=== PATIENT | female | born 1940 | race Caucasian/White ===

== ENCOUNTER 2021-07-31 12:22 | Inpatient (IN) | payer MEDICARE ==
[2021-07-31 13:15] LABS: #Lymphocytes 0.6 thou/uL (1.20-3.40); #Monocytes 0.6 thou/uL (0.11-0.59); #Neutrophils 5.4 thou/uL (1.40-6.50); %Basophils 0.3 % (0.0-1.0); %Eosinophils 0.7 % (0.0-10.0); %Lymphocytes 8.2 % (21.0-51.0); %Monocytes 9.5 % (0.0-10.0); %Neutrophils 81.3 % (42.0-75.0); Hemoglobin 14.1 g/dL (12.0-16.0); Mean Corpuscular HGB CONC 33.8 g/dL (32.0-36.0); Mean Corpuscular Hemoglobin 34.3 pg (27.0-31.0); Mean Platelet Volume 7.1 fL (7.4-10.4); Platelet Count 168 thou/uL (130-400); RBC Distribution Width 11.8 % (11.5-14.5); White Blood Cell (WBC) Count 6.7 thou/uL (4.8-10.8)
[2021-07-31 13:38] LABS: ALT (SGPT) 10 U/L (8-55); AST (SGOT) 28 U/L (5-34); Albumin 3.5 g/dL (3.4-4.8); Alkaline Phosphatase 82 U/L (40-110); Anion Gap 13 mmol/L (10-20); BUN (Urea Nitrogen) 14 mg/dL (9.8-20.1); Calc. Creatinine Clearance 0 mL/min (70-130); Calcium 8.9 mg/dL (7.8-10.44); Carbon Dioxide 19 mmol/L (23-31); Chloride 101 mmol/L (98-107); Globulin 2.5 g/dL (2.4-3.5); Glucose 98 mg/dL (83-110); Potassium 3.9 mmol/L (3.5-5.1); Sodium 129 mmol/L (136-145)
[2021-07-31 15:34] LABS: Bacteria/HPF 3+ HPF (None Seen); Bilirubin Negative (Negative); Blood, Urine 1+ (Negative); Clarity Clear (Clear); Glucose, Urine (Dipstick) Normal (Negative); Ketone, Urine Trace mg/dL (Negative); Leukocyte 500 Leu/uL (Negative); Nitrite Negative (Negative); Protein, Urine (Dipstick) 10 mg/dL (Neg-Trace); RBC/HPF 0-3 HPF (0-3); Specific Gravity, Urine 1.014 (1.002-1.036); Squamous Epithelial 0-3 HPF (0-3); Urobilinogen Normal mg/dL (Less than 2); WBC/HPF Greater than 50 HPF (0-3)
[2021-07-31 16:40] LABS: CKMB 6.9 ng/mL (0-6.6)
[2021-07-31 18:19] LABS: Troponin I 0.442 ng/mL (< 0.028)
[2021-07-31] MEDS ORDERED: HYDROcodone/Acetaminophen 5/325 mg Tablet PO PRN (18:33)
[2021-07-31] MEDS ORDERED: Senokot S 8.6-50 MG TAB PO PRN (18:33)
[2021-07-31] MEDS ORDERED: Ondansetron PF 4 MG/2 ML Vial IVP PRN (18:33)
[2021-07-31] MEDS ORDERED: Acetaminophen 325 MG TAB PO PRN (18:33)
[2021-07-31] MEDS ORDERED: Albuterol Sulfate 2.5 mg/3 ml Neb NEB PRN (18:41)
[2021-07-31] MEDS ORDERED: Aspirin 325 MG TAB ONE (18:46)
[2021-07-31] MEDS ORDERED: Enoxaparin Sodium 80 MG/0.8 ML SYRINGE SC SCH ×2 (19:30→21:00)
[2021-07-31] MEDS ORDERED: Enoxaparin Sodium 80 MG/0.8 ML SYRINGE ONE (19:58)
[2021-07-31] MEDS ORDERED: Nicotine 14 MG PATCH ONE (19:58)
[2021-07-31] MEDS ORDERED: cefTRIAXone\\ROCEPHIN 1 GM VIAL ONE (19:58)
[2021-07-31] MEDS: Sodium Chloride 0.9% 1,000 ML IV SCH (20:20)
[2021-07-31] MEDS: cefTRIAXone\\ROCEPHIN 1 GM in Sodium Chloride 0.9% 100 ML IVPB SCH (20:21)
[2021-07-31] MEDS: Atorvastatin Calcium 40 MG TAB PO SCH (20:21)
[2021-07-31] MEDS: Nicotine 14 MG PATCH TD SCH (20:21)
[2021-07-31 22:07] LABS: Troponin I 0.442 ng/mL (< 0.028)
[2021-08-01 00:21] VITALS: BMI 26.3
[2021-08-01 05:48] LABS: #Eosinphils 0.1 thou/uL (0.0-0.7); #Lymphocytes 0.8 thou/uL (1.20-3.40); #Monocytes 0.5 thou/uL (0.11-0.59); #Neutrophils 2.6 thou/uL (1.40-6.50); %Basophils 0.5 % (0.0-1.0); %Eosinophils 2.9 % (0.0-10.0); %Lymphocytes 18.7 % (21.0-51.0); %Monocytes 12.4 % (0.0-10.0); %Neutrophils 65.5 % (42.0-75.0); Hemoglobin 12.9 g/dL (12.0-16.0); Mean Corpuscular HGB CONC 33.3 g/dL (32.0-36.0); Mean Corpuscular Hemoglobin 33.8 pg (27.0-31.0); Mean Platelet Volume 7.5 fL (7.4-10.4); Platelet Count 150 thou/uL (130-400); RBC Distribution Width 11.9 % (11.5-14.5)
[2021-08-01 06:25] LABS: ALT (SGPT) 10 U/L (8-55); AST (SGOT) 26 U/L (5-34); Alkaline Phosphatase 64 U/L (40-110); Anion Gap 12 mmol/L (10-20); BUN (Urea Nitrogen) 12 mg/dL (9.8-20.1); Bilirubin, Total 0.8 mg/dL (0.2-1.2); CK (CPK) 383 U/L (29-168); Calc. Creatinine Clearance 67 mL/min (70-130); Calcium 8.2 mg/dL (7.8-10.44); Carbon Dioxide 21 mmol/L (23-31); Cardiac Risk 2.7 (Less than 4.5); Chloride 103 mmol/L (98-107); Cholesterol 125 mg/dl (< 200 Desired); Glucose 81 mg/dL (83-110); HDL Cholesterol 47 mg/dL (>60 Neg Risk); LDL Cholesterol, Calculated 67 mg/dL; Potassium 3.6 mmol/L (3.5-5.1); Sodium 132 mmol/L (136-145); Triglycerides 55 mg/dL (Less than 150)
[2021-08-01] MEDS ORDERED: Carvedilol 6.25 MG TAB PO SCH (08:00)
[2021-08-01] MEDS: Sodium Chloride 0.9% 1,000 ML IV SCH (09:48)
[2021-08-01] MEDS: Enoxaparin Sodium 40 MG/0.4 ML SYRINGE SC SCH (09:50)
[2021-08-01] MEDS: Aspirin Chewable 81 MG TAB PO SCH (09:50)
[2021-08-01] MEDS: Carvedilol 6.25 MG TAB PO SCH ×2 (09:51→16:34)
[2021-08-01 13:58] LABS: SARS-CoV-2 PCR by NAA Not Detected (NotDetected)
[2021-08-01] MEDS: Nicotine 14 MG PATCH TD SCH (20:20)
[2021-08-01] MEDS: cefTRIAXone\\ROCEPHIN 1 GM in Sodium Chloride 0.9% 100 ML IVPB SCH (20:20)
[2021-08-01] MEDS: Atorvastatin Calcium 40 MG TAB PO SCH (20:20)
[2021-08-02] MEDS: hydrALAZINE 20 MG/ML VIAL SLOW IVP PRN ×2 (05:02→17:00)
[2021-08-02 05:05] LABS: #Eosinphils 0.1 thou/uL (0.0-0.7); #Lymphocytes 0.6 thou/uL (1.20-3.40); #Monocytes 0.4 thou/uL (0.11-0.59); #Neutrophils 2.7 thou/uL (1.40-6.50); %Basophils 0.1 % (0.0-1.0); %Eosinophils 2.2 % (0.0-10.0); %Lymphocytes 15.4 % (21.0-51.0); %Monocytes 10.2 % (0.0-10.0); %Neutrophils 72.1 % (42.0-75.0); Hemoglobin 12.5 g/dL (12.0-16.0); Mean Corpuscular HGB CONC 33.4 g/dL (32.0-36.0); Mean Corpuscular Hemoglobin 33.7 pg (27.0-31.0); Mean Platelet Volume 7.4 fL (7.4-10.4); Platelet Count 150 thou/uL (130-400); RBC Distribution Width 11.8 % (11.5-14.5); Red Blood Cell (RBC) Count 3.72 mill/uL (4.20-5.40); White Blood Cell (WBC) Count 3.8 thou/uL (4.8-10.8)
[2021-08-02 05:25] LABS: Anion Gap 10 mmol/L (10-20); BUN (Urea Nitrogen) 10 mg/dL (9.8-20.1); Calc. Creatinine Clearance 69 mL/min (70-130); Calcium 8.3 mg/dL (7.8-10.44); Carbon Dioxide 19 mmol/L (23-31); Chloride 104 mmol/L (98-107); Glucose 88 mg/dL (83-110); Potassium 3.5 mmol/L (3.5-5.1); Sodium 129 mmol/L (136-145)
[2021-08-02] MEDS: Aspirin Chewable 81 MG TAB PO SCH (09:34)
[2021-08-02] MEDS: Carvedilol 6.25 MG TAB PO SCH ×2 (09:34→17:44)
[2021-08-02] MEDS: Enoxaparin Sodium 40 MG/0.4 ML SYRINGE SC SCH (09:34)
[2021-08-02] MEDS ORDERED: Sodium Bicarbonate 50 MEQ in Sodium Chloride 0.45% 1,000 ML IV SCH (10:00)
[2021-08-02] MEDS ORDERED: Amlodipine 10 MG TAB PO SCH (18:00)
[2021-08-02] MEDS: cefTRIAXone\\ROCEPHIN 1 GM in Sodium Chloride 0.9% 100 ML IVPB SCH (20:02)
[2021-08-02] MEDS: Atorvastatin Calcium 40 MG TAB PO SCH (20:03)
[2021-08-02] MEDS: Nicotine 14 MG PATCH TD SCH (20:03)
[2021-08-03] MEDS: hydrALAZINE 20 MG/ML VIAL SLOW IVP PRN (01:09)
[2021-08-03 05:09] LABS: #Eosinphils 0.1 thou/uL (0.0-0.7); #Lymphocytes 0.5 thou/uL (1.20-3.40); #Monocytes 0.6 thou/uL (0.11-0.59); #Neutrophils 3.6 thou/uL (1.40-6.50); %Basophils 0.4 % (0.0-1.0); %Eosinophils 1.6 % (0.0-10.0); %Lymphocytes 9.5 % (21.0-51.0); %Monocytes 12.2 % (0.0-10.0); %Neutrophils 76.3 % (42.0-75.0); Hemoglobin 14.3 g/dL (12.0-16.0); Mean Corpuscular HGB CONC 34.8 g/dL (32.0-36.0); Mean Corpuscular Hemoglobin 35.1 pg (27.0-31.0); Mean Platelet Volume 7.3 fL (7.4-10.4); Platelet Count 163 thou/uL (130-400); RBC Distribution Width 11.8 % (11.5-14.5); Red Blood Cell (RBC) Count 4.07 mill/uL (4.20-5.40); White Blood Cell (WBC) Count 4.7 thou/uL (4.8-10.8)
[2021-08-03 05:31] LABS: Anion Gap 10 mmol/L (10-20); BUN (Urea Nitrogen) 7 mg/dL (9.8-20.1); Calc. Creatinine Clearance 77 mL/min (70-130); Calcium 8.4 mg/dL (7.8-10.44); Carbon Dioxide 21 mmol/L (23-31); Chloride 101 mmol/L (98-107); Glucose 91 mg/dL (83-110); Potassium 3.2 mmol/L (3.5-5.1); Sodium 129 mmol/L (136-145)
[2021-08-03] MEDS: Potassium Chloride 20 MEQ TAB PO SCH ×2 (08:50→11:14)
[2021-08-03] MEDS: Enoxaparin Sodium 40 MG/0.4 ML SYRINGE SC SCH (08:50)
[2021-08-03] MEDS: Aspirin Chewable 81 MG TAB PO SCH (08:51)
[2021-08-03] MEDS ORDERED: Amlodipine 10 MG TAB PO SCH (09:00)
[2021-08-03 16:09] VITALS: BP 134/88; TEMP 98.3
== END 2021-08-03 16:39 | disposition left against medical advice (07) | DRG 562 ==
LOC: ERS 12:22 → SUATTDRO 12:22 → ERHOLD 16:38 → 2NO 17:09 → OBSVTOIN 08-02 13:27 → ONC 08-03 12:53
PROVIDERS: ADMIT Internal Medicine; ATTEND Internal Medicine
DX: S52.501A Unspecified fracture of the lower end of right radius, initial encounter for closed fracture (principal); L89.323 Pressure ulcer of left buttock, stage 3; S32.511A Fracture of superior rim of right pubis, initial encounter for closed fracture; N39.0 Urinary tract infection, site not specified; M62.82 Rhabdomyolysis; E87.1 Hypo-osmolality and hyponatremia; I24.8 Other forms of acute ischemic heart disease; Z20.822 Contact with and (suspected) exposure to COVID-19; R29.6 Repeated falls; W19.XXXA Unspecified fall, initial encounter; I10 Essential (primary) hypertension; F17.210 Nicotine dependence, cigarettes, uncomplicated; I25.10 Atherosclerotic heart disease of native coronary artery without angina pectoris; Z53.29 Procedure and treatment not carried out because of patient's decision for other reasons; L89.312 Pressure ulcer of right buttock, stage 2
CPT/HCPCS: 36415; 70450; 71045; 72125; 72170; 80048; 80053; 80061; 81003; 81015; 82550; 82553; 83036; 84484; 85025; 87086; 93005; 93010; 94760; 96372; 96374; 96376; G0378; G0390; J0360; J0696; J1650; J3490; J7050; U0003; U0005

== ENCOUNTER 2021-08-22 10:56 | Inpatient (IN) | payer MEDICARE ==
[2021-08-22 11:44] LABS: #Eosinphils 0.1 thou/uL (0.0-0.7); #Lymphocytes 0.6 thou/uL (1.20-3.40); #Monocytes 0.5 thou/uL (0.11-0.59); #Neutrophils 4.6 thou/uL (1.40-6.50); %Basophils 0.1 % (0.0-1.0); %Eosinophils 1.5 % (0.0-10.0); %Lymphocytes 10.5 % (21.0-51.0); %Monocytes 9.1 % (0.0-10.0); %Neutrophils 78.8 % (42.0-75.0); Hemoglobin 13.8 g/dL (12.0-16.0); Mean Corpuscular HGB CONC 33.9 g/dL (32.0-36.0); Mean Corpuscular Hemoglobin 33.4 pg (27.0-31.0); Mean Corpuscular Volume 98.7 fL (78.0-98.0); Platelet Count 207 thou/uL (130-400); RBC Distribution Width 11.4 % (11.5-14.5); Red Blood Cell (RBC) Count 4.13 mill/uL (4.20-5.40); White Blood Cell (WBC) Count 5.8 thou/uL (4.8-10.8)
[2021-08-22 12:07] LABS: ALT (SGPT) 20 U/L (8-55); AST (SGOT) 31 U/L (5-34); Albumin 3.3 g/dL (3.4-4.8); Alkaline Phosphatase 75 U/L (40-110); Anion Gap 14 mmol/L (10-20); BUN (Urea Nitrogen) 25 mg/dL (9.8-20.1); Bilirubin, Total 0.8 mg/dL (0.2-1.2); CK (CPK) 36 U/L (29-168); Calc. Creatinine Clearance 0 mL/min (70-130); Calcium 8.7 mg/dL (7.8-10.44); Carbon Dioxide 21 mmol/L (23-31); Chloride 105 mmol/L (98-107); Globulin 2.5 g/dL (2.4-3.5); Glucose 87 mg/dL (83-110); Lipase 41 U/L (8-78); Potassium 3.2 mmol/L (3.5-5.1); Protein, Total 5.8 g/dL (5.8-8.1); Sodium 137 mmol/L (136-145)
[2021-08-22 12:26] LABS: CKMB 0.9 ng/mL (0-6.6)
[2021-08-22] MEDS ORDERED: Acetaminophen 325 MG TAB PO PRN (14:00)
[2021-08-22] MEDS ORDERED: Guaifenesin DM 100-10/5 ML UDCUP PO PRN (14:00)
[2021-08-22] MEDS ORDERED: Bisacodyl 5 MG TAB PO PRN (14:00)
[2021-08-22] MEDS ORDERED: Ondansetron PF 4 MG/2 ML Vial IVP PRN (14:00)
[2021-08-22] MEDS ORDERED: Aspirin Chewable 81 MG TAB PO SCH (14:30)
[2021-08-22 15:30] LABS: Troponin I 0.104 ng/mL (< 0.028)
[2021-08-22 18:18] LABS: Troponin I 0.093 ng/mL (< 0.028)
[2021-08-22] MEDS: Carvedilol 6.25 MG TAB PO SCH (18:52)
[2021-08-22] MEDS: Atorvastatin Calcium 40 MG TAB PO SCH (20:10)
[2021-08-22] MEDS: Famotidine 20 MG TAB PO SCH (20:10)
[2021-08-23 05:10] LABS: ALT (SGPT) 17 U/L (8-55); AST (SGOT) 28 U/L (5-34); Albumin 2.9 g/dL (3.4-4.8); Alkaline Phosphatase 67 U/L (40-110); Anion Gap 13 mmol/L (10-20); BUN (Urea Nitrogen) 22 mg/dL (9.8-20.1); Bilirubin, Total 0.8 mg/dL (0.2-1.2); Calc. Creatinine Clearance 0 mL/min (70-130); Calcium 8.4 mg/dL (7.8-10.44); Carbon Dioxide 19 mmol/L (23-31); Chloride 107 mmol/L (98-107); Globulin 2.2 g/dL (2.4-3.5); Glucose 88 mg/dL (83-110); Protein, Total 5.1 g/dL (5.8-8.1); Sodium 136 mmol/L (136-145)
[2021-08-23 05:15] LABS: Potassium 2.9 mmol/L (3.5-5.1)
[2021-08-23 05:28] LABS: #Eosinphils 0.2 thou/uL (0.0-0.7); #Lymphocytes 0.6 thou/uL (1.20-3.40); #Monocytes 0.5 thou/uL (0.11-0.59); #Neutrophils 3.7 thou/uL (1.40-6.50); %Basophils 0.4 % (0.0-1.0); %Eosinophils 3.5 % (0.0-10.0); %Monocytes 10.6 % (0.0-10.0); %Neutrophils 73.5 % (42.0-75.0); Hemoglobin 12.8 g/dL (12.0-16.0); Mean Corpuscular HGB CONC 33.2 g/dL (32.0-36.0); Mean Corpuscular Hemoglobin 32.7 pg (27.0-31.0); Mean Corpuscular Volume 98.6 fL (78.0-98.0); Mean Platelet Volume 7.3 fL (7.4-10.4); Platelet Count 192 thou/uL (130-400); RBC Distribution Width 11.4 % (11.5-14.5); White Blood Cell (WBC) Count 5.1 thou/uL (4.8-10.8)
[2021-08-23 05:29] VITALS: BMI 24.9
[2021-08-23] MEDS ORDERED: Electrolyte Replacement Protocol 1 EACH FS PRN (05:45)
[2021-08-23 05:56] LABS: Bacteria/HPF 3+ HPF (None Seen); Bilirubin Negative (Negative); Blood, Urine 1+ (Negative); Clarity Turbid (Clear); Glucose, Urine (Dipstick) Normal (Negative); Ketone, Urine 10 mg/dL (Negative); Leukocyte 500 Leu/uL (Negative); Nitrite Negative (Negative); Protein, Urine (Dipstick) 50 mg/dL (Neg-Trace); Specific Gravity, Urine 1.027 (1.002-1.036); Squamous Epithelial 0-3 HPF (0-3); Urobilinogen Normal mg/dL (Less than 2); WBC/HPF Greater than 50 HPF (0-3); Yeast-Budding 1+ HPF (None Seen); pH, Urine 6.5 (5.0-9.0)
[2021-08-23 06:02] LABS: Magnesium 1.9 mg/dL (1.6-2.6)
[2021-08-23] MEDS: Potassium Chloride 20 MEQ TAB PO SCH ×4 (06:10→13:21)
[2021-08-23 06:15] LABS: Renal Epithelial 0-3 HPF (None Seen)
[2021-08-23] MEDS ORDERED: Magnesium 2 GM/50 ML 2 GM in Premix Bag 1 BAG IVPB SCH (07:00)
[2021-08-23] MEDS: Enoxaparin Sodium 40 MG/0.4 ML SYRINGE SC SCH (08:46)
[2021-08-23] MEDS: Carvedilol 6.25 MG TAB PO SCH ×2 (08:47→18:08)
[2021-08-23] MEDS: Aspirin Chewable 81 MG TAB PO SCH (08:47)
[2021-08-23] MEDS: Famotidine 20 MG TAB PO SCH ×2 (08:48→20:10)
[2021-08-23] MEDS ORDERED: Amlodipine 5 MG TAB PO SCH (09:45)
[2021-08-23 12:05] LABS: SARS-CoV-2 PCR by NAA Not Detected (NotDetected)
[2021-08-23] MEDS ORDERED: hydrALAZINE 25 MG TAB PO PRN (16:15)
[2021-08-23] MEDS ORDERED: Carvedilol 6.25 MG TAB PO SCH (17:00)
[2021-08-23] MEDS ORDERED: FLU VACC QS2021-22(65YR UP)/PF 240 MCG/0.7 ML SYRINGE IM ONE (18:15)
[2021-08-23] MEDS: cefTRIAXone\\ROCEPHIN 1 GM in Sodium Chloride 0.9% 100 ML IVPB SCH (19:51)
[2021-08-23] MEDS: Atorvastatin Calcium 40 MG TAB PO SCH (20:10)
[2021-08-23] MEDS ORDERED: ALPRAZolam 0.5 MG TAB PO SCH (20:15)
[2021-08-24] MEDS: Melatonin 3 MG TAB PO PRN (00:01)
[2021-08-24 05:22] LABS: Anion Gap 13 mmol/L (10-20); BUN (Urea Nitrogen) 22 mg/dL (9.8-20.1); Calc. Creatinine Clearance 61 mL/min (70-130); Calcium 8.9 mg/dL (7.8-10.44); Carbon Dioxide 19 mmol/L (23-31); Chloride 109 mmol/L (98-107); Glucose 90 mg/dL (83-110); Magnesium 1.9 mg/dL (1.6-2.6); Potassium 4.4 mmol/L (3.5-5.1); Sodium 137 mmol/L (136-145)
[2021-08-24 05:28] LABS: #Eosinphils 0.1 thou/uL (0.0-0.7); #Lymphocytes 0.5 thou/uL (1.20-3.40); #Monocytes 0.5 thou/uL (0.11-0.59); #Neutrophils 4.1 thou/uL (1.40-6.50); %Basophils 0.3 % (0.0-1.0); %Eosinophils 2.7 % (0.0-10.0); %Lymphocytes 9.9 % (21.0-51.0); %Monocytes 9.4 % (0.0-10.0); %Neutrophils 77.6 % (42.0-75.0); Hemoglobin 13.6 g/dL (12.0-16.0); Mean Corpuscular HGB CONC 34.3 g/dL (32.0-36.0); Mean Corpuscular Hemoglobin 34.5 pg (27.0-31.0); Mean Platelet Volume 7.3 fL (7.4-10.4); Platelet Count 192 thou/uL (130-400); RBC Distribution Width 11.5 % (11.5-14.5); Red Blood Cell (RBC) Count 3.95 mill/uL (4.20-5.40); White Blood Cell (WBC) Count 5.3 thou/uL (4.8-10.8)
[2021-08-24] MEDS ORDERED: Magnesium 2 GM/50 ML 2 GM in Premix Bag 1 BAG IVPB SCH (05:45)
[2021-08-24] MEDS: Aspirin Chewable 81 MG TAB PO SCH (10:11)
[2021-08-24] MEDS: Carvedilol 6.25 MG TAB PO SCH ×2 (10:11→18:07)
[2021-08-24] MEDS: Enoxaparin Sodium 40 MG/0.4 ML SYRINGE SC SCH (10:11)
[2021-08-24] MEDS: Amlodipine 5 MG TAB PO SCH (10:11)
[2021-08-24] MEDS: Famotidine 20 MG TAB PO SCH ×2 (10:12→20:13)
[2021-08-24] MEDS: cefTRIAXone\\ROCEPHIN 1 GM in Sodium Chloride 0.9% 100 ML IVPB SCH (18:07)
[2021-08-24] MEDS: Atorvastatin Calcium 40 MG TAB PO SCH (20:13)
[2021-08-25 05:10] LABS: Magnesium 2.2 mg/dL (1.6-2.6)
[2021-08-25] MEDS: Amlodipine 5 MG TAB PO SCH (09:31)
[2021-08-25] MEDS: Carvedilol 6.25 MG TAB PO SCH ×3 (09:31→17:07)
[2021-08-25] MEDS: Famotidine 20 MG TAB PO SCH ×2 (09:32→20:12)
[2021-08-25] MEDS: Enoxaparin Sodium 40 MG/0.4 ML SYRINGE SC SCH (09:32)
[2021-08-25] MEDS: Aspirin Chewable 81 MG TAB PO SCH (09:32)
[2021-08-25] MEDS: cefTRIAXone\\ROCEPHIN 1 GM in Sodium Chloride 0.9% 100 ML IVPB SCH (20:12)
[2021-08-25] MEDS: Atorvastatin Calcium 40 MG TAB PO SCH (20:12)
[2021-08-26 05:17] LABS: #Eosinphils 0.2 thou/uL (0.0-0.7); #Lymphocytes 0.5 thou/uL (1.20-3.40); #Monocytes 0.4 thou/uL (0.11-0.59); %Basophils 0.4 % (0.0-1.0); %Eosinophils 3.9 % (0.0-10.0); %Lymphocytes 10.3 % (21.0-51.0); %Monocytes 7.2 % (0.0-10.0); %Neutrophils 78.2 % (42.0-75.0); Hemoglobin 13.7 g/dL (12.0-16.0); Mean Corpuscular HGB CONC 34.6 g/dL (32.0-36.0); Mean Corpuscular Hemoglobin 34.2 pg (27.0-31.0); Mean Corpuscular Volume 98.9 fL (78.0-98.0); Mean Platelet Volume 7.3 fL (7.4-10.4); Platelet Count 192 thou/uL (130-400); RBC Distribution Width 11.6 % (11.5-14.5); White Blood Cell (WBC) Count 5.1 thou/uL (4.8-10.8)
[2021-08-26 05:51] LABS: Anion Gap 12 mmol/L (10-20); BUN (Urea Nitrogen) 23 mg/dL (9.8-20.1); Calc. Creatinine Clearance 65 mL/min (70-130); Calcium 8.4 mg/dL (7.8-10.44); Carbon Dioxide 20 mmol/L (23-31); Chloride 108 mmol/L (98-107); Glucose 84 mg/dL (83-110); Magnesium 2.1 mg/dL (1.6-2.6); Potassium 3.6 mmol/L (3.5-5.1); Sodium 136 mmol/L (136-145)
[2021-08-26 09:01] LABS: Troponin I 0.043 ng/mL (< 0.028)
[2021-08-26] MEDS ORDERED: Regadenoson 0.4 MG/5 ML SYRINGE ONE (12:53)
[2021-08-26] MEDS: Famotidine 20 MG TAB PO SCH ×2 (16:09→20:28)
[2021-08-26] MEDS: Carvedilol 6.25 MG TAB PO SCH ×2 (16:10→17:02)
[2021-08-26] MEDS: Amlodipine 5 MG TAB PO SCH (17:01)
[2021-08-26] MEDS: Aspirin Chewable 81 MG TAB PO SCH (17:02)
[2021-08-26] MEDS: Enoxaparin Sodium 40 MG/0.4 ML SYRINGE SC SCH (17:02)
[2021-08-26] MEDS: cefTRIAXone\\ROCEPHIN 1 GM in Sodium Chloride 0.9% 100 ML IVPB SCH (20:27)
[2021-08-26] MEDS: Atorvastatin Calcium 40 MG TAB PO SCH (20:28)
[2021-08-27] MEDS ORDERED: Potassium Chloride 20 MEQ TAB PO SCH (08:00)
[2021-08-27] MEDS: Carvedilol 6.25 MG TAB PO SCH ×2 (08:09→17:08)
[2021-08-27] MEDS: Famotidine 20 MG TAB PO SCH ×2 (10:29→21:51)
[2021-08-27] MEDS: Folic Acid 1 MG TAB PO SCH (10:29)
[2021-08-27] MEDS: Aspirin Chewable 81 MG TAB PO SCH (10:29)
[2021-08-27] MEDS: Amlodipine 5 MG TAB PO SCH (10:30)
[2021-08-27] MEDS: Cyanocobalamin (Vitamin B-12) 1,000 MCG TAB PO SCH (10:31)
[2021-08-27] MEDS: Enoxaparin Sodium 40 MG/0.4 ML SYRINGE SC SCH (10:40)
[2021-08-27] MEDS: Atorvastatin Calcium 40 MG TAB PO SCH (21:52)
[2021-08-27] MEDS: cefTRIAXone\\ROCEPHIN 1 GM in Sodium Chloride 0.9% 100 ML IVPB SCH (21:52)
[2021-08-28 05:31] LABS: #Eosinphils 0.1 thou/uL (0.0-0.7); #Lymphocytes 0.4 thou/uL (1.20-3.40); #Monocytes 0.3 thou/uL (0.11-0.59); #Neutrophils 3.1 thou/uL (1.40-6.50); %Basophils 0.3 % (0.0-1.0); %Eosinophils 3.4 % (0.0-10.0); %Monocytes 7.6 % (0.0-10.0); %Neutrophils 77.6 % (42.0-75.0); Hemoglobin 13.9 g/dL (12.0-16.0); Mean Corpuscular HGB CONC 34.6 g/dL (32.0-36.0); Mean Corpuscular Hemoglobin 34.2 pg (27.0-31.0); Mean Corpuscular Volume 98.8 fL (78.0-98.0); Mean Platelet Volume 7.8 fL (7.4-10.4); Platelet Count 188 thou/uL (130-400); RBC Distribution Width 11.5 % (11.5-14.5); Red Blood Cell (RBC) Count 4.07 mill/uL (4.20-5.40)
[2021-08-28 05:52] LABS: Anion Gap 12 mmol/L (10-20); BUN (Urea Nitrogen) 29 mg/dL (9.8-20.1); Calc. Creatinine Clearance 65 mL/min (70-130); Calcium 8.9 mg/dL (7.8-10.44); Carbon Dioxide 20 mmol/L (23-31); Chloride 108 mmol/L (98-107); Glucose 82 mg/dL (83-110); Magnesium 1.9 mg/dL (1.6-2.6); Potassium 3.7 mmol/L (3.5-5.1); Sodium 136 mmol/L (136-145)
[2021-08-28] MEDS ORDERED: Magnesium 2 GM/50 ML 2 GM in Premix Bag 1 BAG IVPB SCH (07:00)
[2021-08-28] MEDS: Cyanocobalamin (Vitamin B-12) 1,000 MCG TAB PO SCH (09:29)
[2021-08-28] MEDS: Famotidine 20 MG TAB PO SCH ×2 (09:29→20:05)
[2021-08-28] MEDS: Amlodipine 5 MG TAB PO SCH (09:29)
[2021-08-28] MEDS: Folic Acid 1 MG TAB PO SCH (09:29)
[2021-08-28] MEDS: Aspirin Chewable 81 MG TAB PO SCH (09:29)
[2021-08-28] MEDS: Carvedilol 6.25 MG TAB PO SCH ×2 (09:29→18:47)
[2021-08-28] MEDS: Enoxaparin Sodium 40 MG/0.4 ML SYRINGE SC SCH (09:30)
[2021-08-28] MEDS: Atorvastatin Calcium 40 MG TAB PO SCH (20:05)
[2021-08-28] MEDS: cefTRIAXone\\ROCEPHIN 1 GM in Sodium Chloride 0.9% 100 ML IVPB SCH (20:05)
[2021-08-29] MEDS: Folic Acid 1 MG TAB PO SCH (09:16)
[2021-08-29] MEDS: Cyanocobalamin (Vitamin B-12) 1,000 MCG TAB PO SCH (09:16)
[2021-08-29] MEDS: Aspirin Chewable 81 MG TAB PO SCH (09:16)
[2021-08-29] MEDS: Famotidine 20 MG TAB PO SCH ×2 (09:16→20:14)
[2021-08-29] MEDS: Enoxaparin Sodium 40 MG/0.4 ML SYRINGE SC SCH (09:17)
[2021-08-29] MEDS: Amlodipine 5 MG TAB PO SCH (09:28)
[2021-08-29] MEDS: Carvedilol 6.25 MG TAB PO SCH ×2 (09:29→18:41)
[2021-08-29] MEDS: Atorvastatin Calcium 40 MG TAB PO SCH (20:14)
[2021-08-29] MEDS: Melatonin 3 MG TAB PO PRN (20:18)
[2021-08-30] MEDS: Amlodipine 5 MG TAB PO SCH (08:37)
[2021-08-30] MEDS: Cyanocobalamin (Vitamin B-12) 1,000 MCG TAB PO SCH (08:37)
[2021-08-30] MEDS: Famotidine 20 MG TAB PO SCH ×2 (08:37→21:30)
[2021-08-30] MEDS: Carvedilol 6.25 MG TAB PO SCH ×2 (08:37→16:50)
[2021-08-30] MEDS: Enoxaparin Sodium 40 MG/0.4 ML SYRINGE SC SCH (08:38)
[2021-08-30] MEDS: Folic Acid 1 MG TAB PO SCH (08:38)
[2021-08-30] MEDS: Aspirin Chewable 81 MG TAB PO SCH (08:38)
[2021-08-30] MEDS: HYDROcodone/Acetaminophen 5/325 mg Tablet PO PRN (12:53)
[2021-08-30] MEDS: Atorvastatin Calcium 40 MG TAB PO SCH (21:30)
[2021-08-30] MEDS: Melatonin 3 MG TAB PO PRN (21:30)
[2021-08-30 22:40] LABS: SARS-CoV-2 PCR by NAA Not Detected (NotDetected)
[2021-08-31] MEDS: Cyanocobalamin (Vitamin B-12) 1,000 MCG TAB PO SCH (09:04)
[2021-08-31] MEDS: Famotidine 20 MG TAB PO SCH ×2 (09:04→20:53)
[2021-08-31] MEDS: Amlodipine 5 MG TAB PO SCH (09:04)
[2021-08-31] MEDS: Aspirin Chewable 81 MG TAB PO SCH (09:04)
[2021-08-31] MEDS: Enoxaparin Sodium 40 MG/0.4 ML SYRINGE SC SCH (09:04)
[2021-08-31] MEDS: Folic Acid 1 MG TAB PO SCH (09:04)
[2021-08-31] MEDS: Carvedilol 6.25 MG TAB PO SCH (09:07)
[2021-08-31] MEDS ORDERED: Carvedilol 6.25 MG TAB PO SCH (13:34)
[2021-08-31] MEDS: Carvedilol 3.125 MG TAB PO SCH (16:47)
[2021-08-31] MEDS: Atorvastatin Calcium 40 MG TAB PO SCH (20:53)
[2021-08-31] MEDS: Melatonin 3 MG TAB PO PRN (20:53)
[2021-09-01] MEDS: Folic Acid 1 MG TAB PO SCH (09:09)
[2021-09-01] MEDS: Aspirin Chewable 81 MG TAB PO SCH (09:09)
[2021-09-01] MEDS: HYDROcodone/Acetaminophen 5/325 mg Tablet PO PRN (09:09)
[2021-09-01] MEDS: Enoxaparin Sodium 40 MG/0.4 ML SYRINGE SC SCH (09:09)
[2021-09-01] MEDS: Cyanocobalamin (Vitamin B-12) 1,000 MCG TAB PO SCH (09:09)
[2021-09-01] MEDS: Famotidine 20 MG TAB PO SCH ×2 (09:09→21:43)
[2021-09-01] MEDS: Carvedilol 3.125 MG TAB PO SCH ×2 (09:10→17:08)
[2021-09-01] MEDS: Atorvastatin Calcium 40 MG TAB PO SCH (21:43)
[2021-09-02 07:54] LABS: ALT (SGPT) 14 U/L (8-55); AST (SGOT) 22 U/L (5-34); Albumin 2.8 g/dL (3.4-4.8); Alkaline Phosphatase 72 U/L (40-110); Anion Gap 11 mmol/L (10-20); BUN (Urea Nitrogen) 22 mg/dL (9.8-20.1); Bilirubin, Total 0.7 mg/dL (0.2-1.2); Calc. Creatinine Clearance 73 mL/min (70-130); Calcium 8.5 mg/dL (7.8-10.44); Carbon Dioxide 21 mmol/L (23-31); Chloride 106 mmol/L (98-107); Globulin 2.5 g/dL (2.4-3.5); Glucose 89 mg/dL (83-110); Potassium 3.3 mmol/L (3.5-5.1); Protein, Total 5.3 g/dL (5.8-8.1); Sodium 135 mmol/L (136-145)
[2021-09-02] MEDS: Carvedilol 3.125 MG TAB PO SCH ×2 (08:28→17:02)
[2021-09-02] MEDS: Cyanocobalamin (Vitamin B-12) 1,000 MCG TAB PO SCH (08:28)
[2021-09-02] MEDS: Folic Acid 1 MG TAB PO SCH (08:28)
[2021-09-02] MEDS: Famotidine 20 MG TAB PO SCH ×2 (08:28→20:54)
[2021-09-02] MEDS: Aspirin Chewable 81 MG TAB PO SCH (08:28)
[2021-09-02] MEDS: Enoxaparin Sodium 40 MG/0.4 ML SYRINGE SC SCH (08:29)
[2021-09-02] MEDS: Potassium Chloride 20 MEQ TAB PO SCH ×2 (11:55→17:02)
[2021-09-02] MEDS: Atorvastatin Calcium 40 MG TAB PO SCH (20:54)
[2021-09-03] MEDS: Famotidine 20 MG TAB PO SCH (09:01)
[2021-09-03] MEDS: Cyanocobalamin (Vitamin B-12) 1,000 MCG TAB PO SCH (09:01)
[2021-09-03] MEDS: Folic Acid 1 MG TAB PO SCH (09:01)
[2021-09-03] MEDS: Aspirin Chewable 81 MG TAB PO SCH (09:01)
[2021-09-03] MEDS: Carvedilol 3.125 MG TAB PO SCH (09:03)
[2021-09-03] MEDS: Enoxaparin Sodium 40 MG/0.4 ML SYRINGE SC SCH (09:03)
[2021-09-03 20:16] VITALS: BP 114/77; TEMP 97.5
== END 2021-09-03 13:12 | disposition swing bed (61) | DRG 592 ==
LOC: ERS 10:56 → 2NO 13:12 → T4-B 08-29 18:19
PROVIDERS: ADMIT Internal Medicine Geriatric Medicine; ATTEND Internal Medicine
DX: L89.152 Pressure ulcer of sacral region, stage 2 (principal); Z20.822 Contact with and (suspected) exposure to COVID-19; I21.A1 Myocardial infarction type 2; S52.501A Unspecified fracture of the lower end of right radius, initial encounter for closed fracture; S52.601A Unspecified fracture of lower end of right ulna, initial encounter for closed fracture; S32.591A Other specified fracture of right pubis, initial encounter for closed fracture; N30.00 Acute cystitis without hematuria; R29.6 Repeated falls; E78.5 Hyperlipidemia, unspecified; I10 Essential (primary) hypertension; L89.322 Pressure ulcer of left buttock, stage 2; L89.312 Pressure ulcer of right buttock, stage 2; F10.10 Alcohol abuse, uncomplicated; I08.0 Rheumatic disorders of both mitral and aortic valves; W18.30XA Fall on same level, unspecified, initial encounter; Y92.009 Unspecified place in unspecified non-institutional (private) residence as the place of occurrence of the external cause; Z91.81 History of falling; Z98.890 Other specified postprocedural states; Z71.6 Tobacco abuse counseling; Z71.41 Alcohol abuse counseling and surveillance of alcoholic
CPT/HCPCS: 36415; 70450; 71045; 72170; 78452; 80048; 80053; 81001; 82550; 82553; 83605; 83690; 83735; 83880; 84484; 85025; 93005; 93017; 93306; 94760; A9500; J0696; J1650; J2785; J3475; J3490; U0003; U0005